=== PATIENT | female | born 1990 | race Caucasian/White ===

== ENCOUNTER 2016-10-04 05:00 | Observation (INO) | payer OTHER ==
[~2016-10-04] VITALS: Ht 157.5 cm; Wt 59.0 kg
[~2016-10-04 05:00] MED LIST: OXYC-130 PO; PREN-89 PO
[2016-10-04] MEDS ORDERED: D5LR 1,000 ML IV SCH (06:00)
[2016-10-04] MEDS ORDERED: ONDANSETRON HCL 4 MG/2 ML VIAL IVP PRN (06:00)
[2016-10-04] MEDS ORDERED: NALBUPHINE HCL 10 MG/ML AMP ONE (06:15)
[2016-10-04] MEDS ORDERED: ONDANSETRON HCL 4 MG/2 ML VIAL ONE (06:15)
[2016-10-04] MEDS: NALBUPHINE HCL 10 MG/ML AMP IVP PRN ×2 (08:28→11:33)
== END 2016-10-04 11:50 | disposition left against medical advice (07) ==
LOC: SPU 05:00
DX: O62.9 Abnormality of forces of labor, unspecified (principal); Z3A.30 30 weeks gestation of pregnancy
CPT/HCPCS: 76700; 81002; 96374; G0378; J2300; J2405

== ENCOUNTER 2017-06-01 03:14 | Emergency (ER) | payer OTHER ==
[~2017-06-01] VITALS: Ht 157.5 cm; Wt 47.6 kg
[2017-06-01 03:20] VITALS: BP 138/76; PULSE 78; RESP 21; TEMP 98.8; O2SAT 98
[2017-06-01] MEDS ORDERED: KETOROLAC TROMETHAMINE 60 MG/2 ML VIAL IM ONE (03:45)
[2017-06-01] MEDS ORDERED: HYDROmorphone 1 MG INJ. 1 MG/ML AMPUL IVP ONE (03:45)
[2017-06-01] MEDS ORDERED: NACL 0.9% 1,000 ML IV ONE (03:45)
[2017-06-01] MEDS ORDERED: ONDANSETRON HCL 4 MG/2 ML VIAL IVP ONE (03:45)
[2017-06-01 03:48] LABS: BILIRUBIN,URINE NEGATIVE (NEGATIVE); BLOOD, URINE 1+ (NEGATIVE); CLARITY/URINE CLEAR (CLEAR); COLOR,URINE YELLOW (YELLOW); GLUCOSE,URINE NEGATIVE (NEGATIVE); KETONES,URINE NEGATIVE (NEGATIVE); LEUKOCYTE ESTERASE ,URINE NEGATIVE (NEGATIVE); NITRITE, URINE NEGATIVE (NEGATIVE); PROTEIN URINE NEGATIVE (NEGATIVE); UROBILINOGEN,URINE 0.2 (0.2-1.0)
[2017-06-01 03:54] LABS: BACTERIA,URINE MODERATE /HPF (None Seen); WBC,URINE 0-3 /HPF (0-3)
[2017-06-01 04:10] LABS: HEMATOCRIT 41.5 % (36-48); HEMOGLOBIN 13.7 g/dL (12.0-16.0); LYMPHOCYTES % (AUTO) 44.6 % (20.5-51.5); MEAN CORPUSCULAR HEMOGLOBIN 29 pg (27-31); MEAN CORPUSCULAR HGB CONC 33 % (32-36); MEAN CORPUSCULAR VOLUME 86 fL (79.0-98.0); MONOCYTES % (AUTO) 6.7 % (1.7-9.3); NEUTROPHILS % (AUTO) 44.9 % (40.0-70.0); PLATELET COUNT (AUTO) 274 K/uL (130-430); RED CELL DISTRIBUTION WIDTH 12.8 % (9.0-15.0); WHITE BLOOD COUNT (AUTO) 8.7 K/uL (4.8-10.8)
[2017-06-01 04:11] LABS: BASOPHILS # (AUTO) 0.1 K/uL (0.0-0.2); BASOPHILS % (AUTO) 0.9 % (0.0-2.0); EOSINOPHILS # (AUTO) 0.3 K/uL (0.0-0.4); EOSINOPHILS % (AUTO) 2.9 % (0.0-4.0); LYMPHOCYTES # (AUTO) 3.8 K/uL (1.0-5.5); MONOCYTES # (AUTO) 0.6 K/uL (0.0-1.0); NEUTROPHILS # (AUTO) 3.9 K/uL (1.8-7.7)
[2017-06-01 04:19] LABS: CALCIUM 10.6 mg/dL (8.4-11.0); CREATININE 0.66 mg/dL (0.55-1.30); POTASSIUM 3.6 mmol/L (3.5-5.1)
[2017-06-01 04:23] LABS: ALBUMIN 4.3 g/dL (3.4-4.8); TOTAL BILIRUBIN 0.3 mg/dL (0.0-1.0)
[2017-06-01 05:18] VITALS: BP 111/71; PULSE 72; RESP 16; TEMP 98.1; O2SAT 99
== END 2017-06-01 05:18 | disposition home or self-care (01) ==
LOC: SED 03:14
DX: N20.2 Calculus of kidney with calculus of ureter (principal)
CPT/HCPCS: 36415; 74176; 80053; 81000; 81025; 83690; 85025; 87086; 96361; 96372; 96374; 96375; 99285; J1170; J1885; J2405; J7030

== ENCOUNTER 2019-04-18 20:17 | Emergency (ER) | payer BC, MEDICARE ==
[~2019-04-18] VITALS: Ht 157.5 cm; Wt 45.4 kg
[2019-04-18] MEDS ORDERED: NACL 0.9% 1,000 ML IV ONE (20:23)
[2019-04-18 20:45] VITALS: BP_SYST 108
--- NOTE | 2019-04-18 20:48 | NUR ---
Patient to ER bed 07 to gown for evaluation. Side rails up. Report given to RITIKA Lu.
--- NOTE | 2019-04-18 20:50 | NUR ---
Pt is alert and oriented. Pt C/O left abdominal pain, with N/V and vaginal bleeding. Pain is stated 10/10. No other complaints noted. Family at bedside. Will continue to monitor.
--- NOTE | 2019-04-18 20:55 | NUR ---
ER MD SAAVEDRA AT BEDSIDE EXAMINING PATIENT.
[2019-04-18] MEDS ORDERED: KETOROLAC TROMETHAMINE 30 MG VIAL IVP ONE (21:15)
[2019-04-18 21:19] LABS: BASOPHILS % (AUTO) 0.9 % (0.0-2.0); EOSINOPHILS # (AUTO) 0.2 K/uL (0.0-0.4); EOSINOPHILS % (AUTO) 3.2 % (0.0-4.0); HEMATOCRIT 38.9 % (36-48); HEMOGLOBIN 13.2 g/dL (12.0-16.0); LYMPHOCYTES # (AUTO) 2.1 K/uL (1.0-5.5); LYMPHOCYTES % (AUTO) 42.1 % (20.5-51.5); MEAN CORPUSCULAR HEMOGLOBIN 31 pg (27-31); MEAN CORPUSCULAR HGB CONC 34 % (32-36); MEAN CORPUSCULAR VOLUME 92 fL (79.0-98.0); MONOCYTES # (AUTO) 0.3 K/uL (0.0-1.0); MONOCYTES % (AUTO) 6.8 % (1.7-9.3); NEUTROPHILS # (AUTO) 2.4 K/uL (1.8-7.7); PLATELET COUNT (AUTO) 205 K/uL (130-430); RED BLOOD CELL COUNT(AUTO) 4.25 MIL/uL (4.2-6.2); RED CELL DISTRIBUTION WIDTH 12.7 % (9.0-15.0); WHITE BLOOD COUNT (AUTO) 5.1 K/uL (4.8-10.8)
[2019-04-18 21:31] LABS: CALCIUM 9.3 mg/dL (8.4-11.0); CREATININE 0.64 mg/dL (0.55-1.30); POTASSIUM 3.6 mmol/L (3.5-5.1)
[2019-04-18 21:35] LABS: ALBUMIN 3.8 g/dL (3.4-4.8); TOTAL BILIRUBIN 0.2 mg/dL (0.0-1.0)
--- NOTE | 2019-04-18 21:55 | NUR ---
Pt to ultra sound room with tech.
[2019-04-18 22:08] LABS: INR 0.9 (0.8-1.2); PROTHROMBIN TIME 9.7 SECS (9.5-12.5)
[2019-04-18 22:10] LABS: BILIRUBIN,URINE NEGATIVE (NEGATIVE); BLOOD, URINE 2+ (NEGATIVE); CLARITY/URINE CLEAR (CLEAR); COLOR,URINE YELLOW (YELLOW); GLUCOSE,URINE NEGATIVE (NEGATIVE); KETONES,URINE NEGATIVE (NEGATIVE); LEUKOCYTE ESTERASE ,URINE NEGATIVE (NEGATIVE); NITRITE, URINE NEGATIVE (NEGATIVE); PH,URINE 7.5 (5.0-8.0); PROTEIN URINE NEGATIVE (NEGATIVE); UROBILINOGEN,URINE 0.2 (0.2-1.0)
[2019-04-18] MEDS ORDERED: ONDANSETRON HCL 4 MG/2 ML VIAL IVP ONE (22:15)
[2019-04-18] MEDS ORDERED: MORPHINE 4 MG/ML INJ. SYRINGE IVP ONE (22:45)
[2019-04-18 22:54] VITALS: BP_SYST 110
--- NOTE | 2019-04-18 22:54 | NUR ---
Patient given written and verbal discharge instructions and verbalizes understanding. ER MD Chirinos discussed with patient the results and treatment provided. Patient in stable condition. ID arm band removed. IV catheter removed intact and dressing applied, no active bleeding. Rx of Tylenol with codeine and Zofran given. Patient educated on pain management and to follow up with PMD. Pain Scale 3/10. Opportunity for questions provided and answered. Medication side effect fact sheet provided.
[2019-04-18 22:56] LABS: BACTERIA,URINE FEW /HPF (None Seen); MUCUS,URINE None Seen /LPF (None Seen)
== END 2019-04-18 22:54 | disposition home or self-care (01) ==
LOC: SED 20:17
DX: N93.9 Abnormal uterine and vaginal bleeding, unspecified (principal); R10.2 Pelvic and perineal pain; R10.32 Left lower quadrant pain; Z88.0 Allergy status to penicillin; Z79.899 Other long term (current) drug therapy
CPT/HCPCS: 36415; 76830; 76857; 80053; 81000; 82150; 83605; 83690; 85025; 85610; 85730; 96374; 96375; 99284; J1885; J2270; J2405; J7030

== ENCOUNTER 2020-10-22 07:21 | Day surgery (SDC) | payer BC, SELFPAY ==
[~2020-10-22] VITALS: Ht 157.5 cm; Wt 47.6 kg
[2020-10-22 08:53] LABS: HCG,QUAL RESULT NEGATIVE (NEGATIVE)
[2020-10-22] MEDS ORDERED: METOCLOPRAMIDE HCL 10 MG/2 ML VIAL IVP PRN (11:15)
[2020-10-22] MEDS ORDERED: MEPERIDINE HCL/PF 25 MG/ML DISP.SYRIN IVP PRN (11:15)
[2020-10-22] MEDS ORDERED: ONDANSETRON HCL 4 MG/2 ML VIAL IVP PRN (11:15)
[2020-10-22] MEDS ORDERED: LR 1,000 ML IV SCH (11:15)
[2020-10-22] MEDS: HYDROmorphone 1 MG INJ. 1 MG/ML AMPUL IVP PRN ×2 (11:45→11:50)
[2020-10-22] MEDS ORDERED: HYDROmorphone 1 MG INJ. 1 MG/ML AMPUL ONE (11:47)
[2020-10-22 12:15] VITALS: BP_SYST 102
== END 2020-10-22 13:35 | disposition home or self-care (01) ==
LOC: SMU 07:21 → SDS 07:21
PROVIDERS: ATTEND Obstetrics & Gynecology
DX: R10.2 Pelvic and perineal pain (principal); N80.9 Endometriosis, unspecified; G89.29 Other chronic pain; N73.6 Female pelvic peritoneal adhesions (postinfective); Z88.0 Allergy status to penicillin; Z20.828 Contact with and (suspected) exposure to other viral communicable diseases; Z79.899 Other long term (current) drug therapy
CPT/HCPCS: 36415; 58662; 84703; 86886; 86900; 86901; C1727; J1170; U0003